=== PATIENT | female | born 1935 | race Caucasian/White ===

== ENCOUNTER 2017-10-02 10:41 | Observation (INO) | payer OTHER, MEDICARE ==
[~2017-10-02] VITALS: Ht 154.9 cm; Wt 62.7 kg
[2017-10-02 11:31] LABS: HEMATOCRIT 33.4 % (36.0-46.0); HEMOGLOBIN 10.9 G/DL (11.9-15.5); MCHC 32.6 G/DL (30.0-36.0); PLATELET COUNT 319 K/uL (156-360); RBC DIS.WIDTH-CV 13.8 % (11.8-14.6); RED BLOOD COUNT 3.63 M/uL (3.80-5.20); WHITE BLOOD COUNT 10.4 K/uL (4.1-10.2)
[2017-10-02 11:41] LABS: ALBUMIN 3.6 g/dL (3.2-4.8); CHLORIDE 106 mEq/L (99-109); POTASSIUM 3.8 mEq/L (3.7-5.4); SODIUM 138 mEq/L (136-147)
[2017-10-02 11:43] LABS: GLUCOSE 106 mg/dL (70-99); TOTAL PROTEIN 7.3 g/dL (6.4-8.3)
[2017-10-02 11:45] LABS: TOTAL BILIRUBIN 0.6 mg/dL (0.0-1.0)
[2017-10-02 11:47] LABS: ALKALINE PHOSPHATASE 86 IU/L (3-129); CREATININE 1.2 mg/dL (0.6-1.3)
[2017-10-02 11:48] LABS: AST (GOT) 19 IU/L (2-34); UREA NITROGEN (BUN) 25 mg/dL (9-23)
[2017-10-02 11:49] LABS: DIRECT BILIRUBIN 0.2 mg/dL (0.0-0.3)
[2017-10-02 11:50] LABS: ALT (GPT) 15 IU/L (3-49)
[2017-10-02 11:53] LABS: GFR ESTIMATE (CALCULATED) 46 mL/min/; TROP-I INTERPRETATION NEGATIVE; TROPONIN-I 0.07 ng/mL (0.0-0.30)
[2017-10-02] MEDS ORDERED: ARMOUR THYROID60 M1 PO (12:39)
[2017-10-02] MEDS ORDERED: PAIN RELIEVER325 MG PO (12:39)
[2017-10-02] MEDS ORDERED: ATORVASTATIN CA80 MG PO (12:40)
[2017-10-02] MEDS ORDERED: CLOPIDOGREL75 MG PO (12:40)
[2017-10-02] MEDS ORDERED: BENTYL10 MG PO (12:41)
[2017-10-02] MEDS ORDERED: DIPHENOXYLATE/1 EACH PO (12:41)
[2017-10-02] MEDS ORDERED: PANTOPRAZOLE SO40 MG PO (12:42)
[2017-10-02] MEDS ORDERED: FUROSEMIDE20 MG PO (12:42)
[2017-10-02] MEDS ORDERED: NITROGLYCERIN0.4 MG SL (12:42)
[2017-10-02] MEDS ORDERED: METOPROLOL SUC100 MG PO (12:42)
[2017-10-02] MEDS ORDERED: XARELTO15 MG PO (12:43)
[2017-10-02] MEDS ORDERED: VALSARTAN40 MG PO (12:43)
[2017-10-02 14:27] VITALS: BP 123/58
[2017-10-02 18:24] LABS: TROP-I INTERPRETATION NEGATIVE; TROPONIN-I 0.08 ng/mL (0.0-0.30)
[2017-10-02 20:35] VITALS: BP 125/56
[2017-10-02 23:06] VITALS: BP 114/56
[2017-10-03 01:18] LABS: TROP-I INTERPRETATION NEGATIVE; TROPONIN-I 0.08 ng/mL (0.0-0.30)
[2017-10-03 03:33] VITALS: BP 97/55
[2017-10-03 05:26] LABS: INTER. NORMALIZED RATIO 1.6
[2017-10-03 05:28] LABS: PTT 28.4 SEC (25-37)
[2017-10-03 05:32] LABS: HEMATOCRIT 29.3 % (36.0-46.0); HEMOGLOBIN 9.3 G/DL (11.9-15.5); MCH 29.5 PG (29.0-34.0); MCHC 31.7 G/DL (30.0-36.0); PLATELET COUNT 336 K/uL (156-360); RBC DIS.WIDTH-CV 13.8 % (11.8-14.6); RBC DIS.WIDTH-SD 47.2 % (39-53); RED BLOOD COUNT 3.15 M/uL (3.80-5.20)
[2017-10-03 05:44] LABS: CHLORIDE 106 MEQ/L (99-109); CREATININE 1.2 MG/DL (0.6-1.3); GFR ESTIMATE (CALCULATED) 46 mL/min/; GLUCOSE 95 mg/dL (70-99); HDL CHOLESTEROL 24 MG/DL (Desirable>=50); LDL CHOLESTEROL 34 mg/dL (Desirable<100); NON-HDL CHOLESTEROL 50 mg/dL (Desirable<160); SODIUM 139 MEQ/L (136-147); TOTAL CHOLESTEROL 74 mg/dL (Desirable<200); TRIGLYCERIDES 78 MG/DL (Normal: <150); UREA NITROGEN (BUN) 19 mg/dL (9-23)
[2017-10-03 08:08] VITALS: BP 107/59
[2017-10-03 10:33] VITALS: BP 114/56
== END 2017-10-03 14:38 | disposition home or self-care (01) ==
LOC: EME 10:41 → 4EAST 12:32 → EDOF 12:32 → 4EAST 12:32 → ENRESERV 12:44 → 4EAST 14:12 → ENPENDDIS 10-03 → 4EAST 10-03 11:10
PROVIDERS: Internal Medicine
DX: R07.9 Chest pain, unspecified (principal); I25.10 Atherosclerotic heart disease of native coronary artery without angina pectoris; Z95.5 Presence of coronary angioplasty implant and graft; I25.5 Ischemic cardiomyopathy; I13.0 Hypertensive heart and chronic kidney disease with heart failure and stage 1 through stage 4 chronic kidney disease, or unspecified chronic kidney disease; I50.42 Chronic combined systolic (congestive) and diastolic (congestive) heart failure; N18.3 Chronic kidney disease, stage 3 (moderate); E03.9 Hypothyroidism, unspecified; E78.5 Hyperlipidemia, unspecified; I48.0 Paroxysmal atrial fibrillation; Z79.01 Long term (current) use of anticoagulants; I21.3 ST elevation (STEMI) myocardial infarction of unspecified site; K21.9 Gastro-esophageal reflux disease without esophagitis; F41.9 Anxiety disorder, unspecified; Z87.891 Personal history of nicotine dependence; Z82.49 Family history of ischemic heart disease and other diseases of the circulatory system; Z79.02 Long term (current) use of antithrombotics/antiplatelets; Z88.1 Allergy status to other antibiotic agents
CPT/HCPCS: 71046; 80048; 80061; 80076; 83036; 83880; 84484; 85027; 85610; 85730; 93005; 94799; 99281; 99285; G0378; J1940; J2270; J2405; J7030